=== PATIENT | female | born 1990 | race Caucasian/White ===

== ENCOUNTER 2018-07-17 08:46 | Emergency (ER) | payer OTHER ==
[~2018-07-17] VITALS: Ht 160 cm; Wt 56.4 kg
[2018-07-17 08:58] VITALS: BP 115/72
--- NOTE | 2018-07-17 09:02 | NUR ---
TO LOBBY A/W BED, AMBULATORY, VSS ERMD NOTED
--- NOTE | 2018-07-17 09:40 | NUR ---
PATIENT AMBULATED TO BED 10 AT THIS TIME
--- NOTE | 2018-07-17 09:45 | NUR ---
PT BIB MOTHER C/O LLQ ABD PAIN 6/10 RADIATING TO R FLANK SINCE MONDAY. DENIES DYSURIA. +NAUSEA, DENIES VOMITTING/DIARRHEA. STATES SHE TRIED TO SEE PCP THIS AM BUT THE OFFICE WAS SHUT DOWN PERMANENTLY. URINE OBTAINED. SKIN IS INTACT, PINK/WARM/DRY; AAOX4, PERRL, WITH EVEN AND STEADY GAIT; LUNGS CLEAR BL, BREATHING UNLABORED; HR EVEN AND REGULAR, BL PERIPHERAL PULSES PRESENT; BS ACTIVE X4, NO TENDERNESS TO PALPATION, NO HEPATOSPLENOMEGALLY PALPATED, RESONANT TO PERCUSSION; PT DENIES ANY FEVER, CP, SOB, OR COUGH AT THIS TIME; PT STATES 6/10 PAIN AT THIS TIME; VSS; PATIENT POSITIONED FOR COMFORT; HOB ELEVATED; BEDRAILS UP X2; BED DOWN.
--- NOTE | 2018-07-17 10:00 | NUR ---
EDMD EVALUATING PT AT BEDSIDE
[2018-07-17 10:44] LABS: APPEARANCE,URINE HAZY (CLEAR); BILIRUBIN,URINE NEGATIVE (NEGATIVE); BLOOD, URINE 3+ (NEGATIVE); COLOR,URINE YELLOW (YELLOW); LEUKOCYTE ESTERASE ,URINE 1+ (NEGATIVE); NITRITE, URINE NEGATIVE (NEGATIVE); UGLUCOSE NEGATIVE (NEGATIVE)
[2018-07-17 10:48] LABS: RBC,URINE 3-10 (FEW) /HPF (0-5)
[2018-07-17 10:49] LABS: WBC,URINE 0-5 (RARE) /HPF (0-5)
--- NOTE | 2018-07-17 11:00 | NUR ---
PT TO XRAY WITH WAX PATTERN COATER
[2018-07-17 11:21] LABS: BARBITURATE, URINE NEG. ng/ml (NEG <=200); BENZODIAZEPINE, URINE NEG. ng/mL (NEG <=200); CANNABINOID, URINE NEG. ng/mL (NEG <=50); COCAINE, URINE NEG. ng/mL (NEG <=300); OPIATE, URINE NEG. ng/mL (NEG <=2000); PHENCYCLIDINE SCREEN,URINE NEG. ng/mL (NEG <=25)
--- NOTE | 2018-07-17 11:33 | NUR ---
PT RETURN FROM XRAY
[2018-07-17] MEDS ORDERED: LACTULOSE 20 GM/30 ML UDC PO ONE (12:00)
[2018-07-17] MEDS ORDERED: DICYCLOMINE HCL LIQUID 10 MG/5 ML UDC PO ONE (12:00)
--- NOTE | 2018-07-17 12:11 | NUR ---
EDMD AT BEDSIDE
[2018-07-17] MEDS ORDERED: LEVOFLOXACIN 500 MG TAB PO ONE (12:45)
[2018-07-17 13:22] VITALS: BP 112/60
--- NOTE | 2018-07-17 13:22 | NUR ---
Patient discharged with v/s stable. Written and verbal after care instructions given and explained. Patient alert, oriented and verbalized understanding of instructions. Ambulatory with steady gait. All questions addressed prior to discharge. ID band removed. Patient advised to follow up with PMD. Rx of Levaquin 500mg and Bentyl 10mg given. Patient educated on indication of medication including possible reaction and side effects. Opportunity to ask questions provided and answered.
== END 2018-07-17 13:22 | disposition home or self-care (01) ==
LOC: MED 08:46
DX: N30.90 Cystitis, unspecified without hematuria (principal); Z88.0 Allergy status to penicillin; Z88.1 Allergy status to other antibiotic agents
CPT/HCPCS: 74018; 80305; 81001; 81025; 87086; 99284